=== PATIENT | male | born 1980 | race African-American/Black ===

== ENCOUNTER 2024-06-27 14:45 | Emergency (ER) | payer OTHER ==
--- NOTE | 2024-06-27 15:18 | RAD REPORT ---
EXAMINATION: ONE VIEW CHEST XR CLINICAL INDICATION: CHEST PAIN TECHNIQUE: Frontal chest projection is submitted. Examination is limited by patient positioning and t echnique. COMPARISON: No prior exam. FINDINGS: Mild reticular opacities in both lung bases favored to be chronic. Mild bronchitis is also possibilit y. No focal infiltrate to suggest pneumonia. The heart is upper limit of normal in size. No displaced fractures identified.
[2024-06-27 15:24] LABS: Absolute Basophils 0.1 K/uL (0-0.5); Absolute Eosinophils 0.2 K/uL (0-0.5); Absolute Lymphocytes (CBC) 3.4 K/uL (0.7-4.9); Absolute Monocytes 0.7 K/uL (0.1-1.3); Absolute Neutrophil 4.3 K/uL (1.8-8.0); Basophils % 0.7 % (0-1.3); Eosinophils % 2.8 % (0-4.4); Hematocrit 40.8 % (39.6-49.0); Hemoglobin 14.1 g/dL (13.6-17.9); Lymphocytes % 39.1 % (15.3-44.8); MCH 25.4 pg (27.0-35.0); MCHC 34.6 g/dL (32.0-36.0); MCV 73.6 fL (80-100); MPV 7.6 fL (7.6-11.3); Monocytes % 8.4 % (3.3-12.3); Platelets 289 thou/uL (152-406); RBC Red Blood Cell Count 5.54 M/uL (4.33-5.43); Red Cell Distribution Width 16.8 % (12.1-15.2)
[2024-06-27 15:33] LABS: PT Prothrombin Time 13.4 SECONDS (9.4-12.5); Protime INR 1.28
[2024-06-27 15:39] LABS: ALT/SGPT 27 U/L (16-61); AST/SGOT 17 U/L (15-37); Albumin 3.4 g/dL (3.4-5.0); Albumin/Globulin Ratio 0.7 (1.1-1.8); Alkaline Phosphatase 86 U/L (45-117); Anion Gap 6.8 mEq/L (5.0-15.0); BUN Blood Urea Nitrogen 11 mg/dL (7-18); Bicarbonate 27 mEq/L (21-32); Bilirubin Total 0.2 mg/dL (0.2-1.0); Glomerular Filtration Rate 96 ml/min (=/>90); Glucose Level 109 mg/dL (74-106); Magnesium 2.2 mg/dL (1.6-2.4); NT PRO-BNP 13 pg/mL (<125); Potassium 3.8 mEq/L (3.5-5.1); Protein, Total 8.4 g/dL (6.4-8.2); Sodium Level 138 mEq/L (136-145); Troponin High Sensitivity 4.6 pg/mL (<58.9)
[2024-06-27 15:42] LABS: Bilirubin Direct < 0.2 mg/dL (0-0.2)
--- NOTE | 2024-06-27 16:04 | EDPHYS ---
Physician Documentation [facility] Name: Jese Gutierrez Age: 43 yrs Sex: Male : 1980 Arrival Date: 06/27/2024 Time: 14:45 Bed 17 Private MD: ED Physician Nelly Jeter HPI: 06/27 15:16 This 43 yrs old Male presents to ER via EMS with complaints of Chest Pain, Back Pain. sp3 15:16 . sp3 15:27 43-year-old male with history of hypertension, bipolar disease, anxiety now presents to 3 the ED with chief complaint chest pain that started yesterday evening as well as chronic back pain has had for some years. He denies any other symptoms including shortness of breath, fever, headache, dumping, nausea, vomit, diarrhea, syncope, near syncope, rash, bleeding, or any other signs or symptoms on ROS at this time. He denies any prolonged immobilization, long travel or prior DVT or PE.. Historical: - Allergies: 14:49 No Known Allergies; bp - PMHx: 14:49 Hypertensive disorder; Bipolar disorder; Anxiety; bp - Immunization history:: Adult Immunizations up to date. - Infectious Disease History:: Denies. - Social history:: Smoking status: unknown. ROS: 15:27 Constitutional: Negative for fever, chills, and weight loss, Eyes: Negative for injury, sp3 pain, redness, and discharge, ENT: Negative for injury, pain, and discharge, Neck: Negative for injury, pain, and swelling, Respiratory: Negative for shortness of breath, cough, wheezing, and pleuritic chest pain, Abdomen/GI: Negative for abdominal pain, nausea, vomiting, diarrhea, and constipation, Back: Negative for injury and pain, MS/Extremity: Negative for injury and deformity, Skin: Negative for injury, rash, and discoloration, Neuro: Negative for headache, weakness, numbness, tingling, and seizure, Psych: Negative for depression, anxiety, suicide ideation, homicidal ideation, and hallucinations, Allergy/Immunology: Negative for hives, rash, and allergies, Endocrine: Negative for neck swelling, polydipsia, polyuria, polyphagia, and marked weight changes, Hematologic/Lymphatic: Negative for swollen nodes, abnormal bleeding, and unusual bruising, 15:27 All other systems are negative, Exam: 15:28 Constitutional: This is a well developed, well nourished patient who is awake, alert, sp3 and in no acute distress. Head/Face: Normocephalic, atraumatic. Eyes: Pupils equal round and reactive to light, extra-ocular motions intact. Lids and lashes normal. Conjunctiva and sclera are non-icteric and not injected. Cornea within normal limits. Periorbital areas with no swelling, redness, or edema. ENT: Nares patent. No nasal discharge, no septal abnormalities noted. External auditory canals are clear. Oropharynx with no redness, swelling, or masses, exudates, or evidence of obstruction, uvula midline. Mucous membranes moist. Neck: Trachea midline, no thyromegaly or masses palpated, and no cervical lymphadenopathy. Supple, full range of motion without nuchal rigidity, or vertebral point tenderness. No Meningismus. Chest/axilla: Normal chest wall appearance and motion. Nontender with no deformity. No lesions are appreciated. Cardiovascular: Regular rate and rhythm with a normal S1 and S2. No gallops, murmurs, or rubs. Normal PMI, no JVD. No pulse deficits. Respiratory: Lungs have equal breath sounds bilaterally, clear to auscultation and percussion. No rales, rhonchi or wheezes noted. No increased work of breathing, no retractions or nasal flaring. Abdomen/GI: Soft, non-tender, with normal bowel sounds. No distension or tympany. No guarding or rebound. No evidence of tenderness throughout. Back: No spinal tenderness. No costovertebral tenderness. Full range of motion. Skin: Warm, dry with normal turgor. Normal color with no rashes, no lesions, and no evidence of cellulitis. MS/ Extremity: Pulses equal, no cyanosis. Neurovascular intact. Full, normal range of motion. Neuro: Awake and alert, GCS 15, oriented to person, place, time, and situation. Cranial nerves II-XII grossly intact. Motor strength 5/5 in all extremities. Sensory grossly intact. Cerebellar exam normal. Normal gait. Psych: Awake, alert, with orientation to person, place and time. Behavior, mood, and affect are within normal limits. 15:28 ECG was reviewed by the Attending Physician. EKG demonstrates normal sinus rhythm at 83 bpm with normal intervals, normal QRS, normal axis, normal ST/T-segment's without evidence of acute ischemia. Vital Signs: 14:47 BP 147 / 87; Pulse 75; Resp 16; Temp 98; Pulse Ox 100% ; bp MDM: 14:47 Medical Screening Exam initiated rn 15:29 Data reviewed: vital signs, nurses notes, EMS record, old medical records, lab test sp3 result(s), EKG, radiologic studies. ED course: 43-year-old male with PMH above and now with atypical chest pain. Patient is in no acute distress resting comfortably. EKG is normal. Chest x-ray also demonstrates no significant abnormality. Labs are pending. Given greater than 8 hours of off-and-on pain, 1 set of cardiac markers. Rule patient out. Differential diagnosis includes musculoskeletal pain, GI related pain, and to a much lesser degree acute coronary syndrome or related pathology. Clinically I am not highly suspicious of PE, TAD, pleurisy, infection or any other concerning process. If workup is negative, we will safely discharge home.. 16:02 ED course: Full workup negative. Patient in no acute distress resting comfortably. We sp3 will safely discharge home at this time.. 06/27 14:49 Order name: Basic Metabolic Panel; Complete Time: 15:47 3 06/27 14:49 Order name: CBC with Diff; Complete Time: 15:47 3 06/27 14:49 Order name: LFT's; Complete Time: 15:47 3 06/27 14:49 Order name: Magnesium; Complete Time: 15:47 3 06/27 14:49 Order name: NT PRO-BNP; Complete Time: 15:47 3 06/27 14:49 Order name: PT-INR; Complete Time: 15:47 3 06/27 14:49 Order name: Troponin HS; Complete Time: 15:47 3 06/27 14:49 Order name: XRAY Chest (1 view); Complete Time: 15:26 3 06/27 14:49 Order name: Cardiac monitoring; Complete Time: 14:56 3 06/27 14:49 Order name: EKG - Nurse/Tech; Complete Time: 15:10 3 06/27 14:49 Order name: IV Saline Lock; Complete Time: 15:10 3 06/27 14:49 Order name: Labs collected and sent; Complete Time: 15:10 sp3 06/27 14:49 Order name: O2 Per Protocol; Complete Time: 14:56 sp3 06/27 14:49 Order name: O2 Sat Monitoring; Complete Time: 14:56 sp3 Administered Medications: No medications were administered Disposition Summary: 06/27/24 16:03 Discharge Ordered Notes: Location: Home sp3 Condition: Stable sp3 Diagnosis - Chest pain sp3 Followup: sp3 - With: Private Physician - When: Upon discharge from the Emergency Department - Reason: Continuance of care Discharge Instructions: - Discharge Summary Sheet sp3 - Nonspecific Chest Pain, Adult sp3 Forms: - Medication Reconciliation Form sp3 - Antibiotic Education sp3 - Prescription Opioid Use sp3 - Patient Portal Instructions sp3 - Leadership Thank You Letter sp3 Signatures: Dispatcher [employer] EDMS Conner Alexander MD MD rn Peltier, Brian, RN RN bp Patel, Setul, MD MD sp3 Corrections: (The following items were deleted from the chart) 14:50 14:50 BASIC METABOLIC PANEL+C.LAB.BRZ ordered. EDMS EDMS 14:50 14:50 CBC+H.LAB.BRZ ordered. EDMS EDMS 14:50 14:50 HEPATIC FUNCTION+C.LAB.BRZ ordered. EDMS EDMS 14:50 14:50 MAGNESIUM+C.LAB.BRZ ordered. EDMS EDMS 14:50 14:50 PROBNP+C.LAB.BRZ ordered. EDMS EDMS 14:50 14:50 PROTIME (+INR)+COAG.LAB.BRZ ordered. EDMS EDMS 14:50 14:50 Troponin High Sensitivity+C.LAB.BRZ ordered. EDMS EDMS 14:50 14:50 Chest Single View+RAD.RAD.BRZ ordered. EDMS EDMS
--- NOTE | 2024-06-27 16:04 | ER ---
Nurse's Notes [facility] Name: Jese Gutierrez Age: 43 yrs Sex: Male : 1980 Arrival Date: 06/27/2024 Time: 14:45 Bed 17 Private MD: Diagnosis: Chest pain Presentation: 06/27 14:47 Chief complaint: EMS states: 1 YEAR OF CHEST AND BACK PAIN FROM [facility]. bp Coronavirus screen: At this time, the client does not indicate any symptoms associated with coronavirus-19. Ebola Screen: No symptoms or risks identified at this time. Initial Sepsis Screen: Does the patient meet any 2 criteria? No. Patient's initial sepsis screen is negative. Does the patient have a suspected source of infection? No. Patient's initial sepsis screen is negative. Risk Assessment: Do you want to hurt yourself or someone else? Patient reports no desire to harm self or others. Onset of symptoms is unknown. 14:47 Method Of Arrival: EMS: [facility] bp 14:47 Acuity: BERENICE 3 bp Triage Assessment: 14:49 General: Appears in no apparent distress. Behavior is cooperative, appropriate for age, bp anxious. Pain: Complains of pain in back and chest. EENT: No deficits noted. Neuro: No deficits noted. Cardiovascular: Reports chest pain. Respiratory: No deficits noted. GI: No signs and/or symptoms were reported involving the gastrointestinal system. : No signs and/or symptoms were reported regarding the genitourinary system. Derm: No deficits noted. Musculoskeletal: No deficits noted. Historical: - Allergies: 14:49 No Known Allergies; bp - PMHx: 14:49 Hypertensive disorder; Bipolar disorder; Anxiety; bp - Immunization history:: Adult Immunizations up to date. - Infectious Disease History:: Denies. - Social history:: Smoking status: unknown. Screenin:20 [facility] ED Fall Risk Assessment (Adult) History of falling in the last 3 months, iw including since admission No falls in past 3 months (0 pts) Confusion or Disorientation No (0 pts) Intoxicated or Sedated No (0 pts) Impaired Gait No (0 pts) Mobility Assist Device Used No (0 pt) Altered Elimination No (0 pt) Score/Fall Risk Level 0 - 2 = Low Risk Oriented to surroundings. Abuse screen: Denies threats or abuse. Denies injuries from another. Nutritional screening: No deficits noted. Tuberculosis screening: No symptoms or risk factors identified. Assessment: 16:20 Reassessment: Patient appears in no apparent distress at this time. Patient and/or iw family updated on plan of care and expected duration. Pain level reassessed. Patient is alert, oriented x 3, equal unlabored respirations, skin warm/dry/pink. Vital Signs: 14:47 BP 147 / 87; Pulse 75; Resp 16; Temp 98; Pulse Ox 100% ; bp ED Course: 14:47 Patient arrived in ED. bp 14:47 Conner Alexander MD is Attending Physician. rn 14:48 Attending Physician role handed off by Conner Alexander MD sp3 14:48 Nelly Jeter MD is Attending Physician. sp3 14:49 Triage completed. bp 14:49 Arm band placed on. bp 15:10 Jc Vaughn RN is Primary Nurse. bp 15:10 Initial lab(s) drawn, by me, sent to lab. EKG done, by ED staff, reviewed by Nelly Jeter MD. Inserted saline lock: 22 gauge in right antecubital area, using aseptic technique. Blood collected. Flushed with 10 mL NS. 15:11 XRAY Chest (1 view) In Process Unspecified. EDMS Administered Medications: No medications were administered Outcome: 16:03 Discharge ordered by sp3 16:24 Discharged to home ambulatory, iw 16:24 Condition: good 16:24 Discharge instructions given to patient, Instructed on discharge instructions, follow up and referral plans. Demonstrated understanding of instructions, follow-up care, 16:25 Patient left the ED. iw Signatures: Dispatcher [employer] EDMS Zulma Tate, RN RN Conner Alexander MD MD rn Peltier, Brian, RN RN bp Patel, Setul, MD MD sp3
[2024-06-27 19:51] VITALS: BP 147/87; TEMP 98; O2SAT 100
== END 2024-06-27 16:25 | disposition home or self-care (01) ==
LOC: ER 14:45
DX: R07.9 Chest pain, unspecified (principal); I10 Essential (primary) hypertension
CPT/HCPCS: 36415; 71045; 80048; 80076; 83735; 83880; 84484; 85025; 85610; 93005